=== PATIENT | female | born 1925 | race Caucasian/White ===

== ENCOUNTER 2017-01-01 10:27 | Day surgery (SDC) | payer MEDICARE, BC ==
[~2017-01-01] VITALS: Ht 170.2 cm; Wt 79.8 kg
[~2017-01-01 10:27] MED LIST: (None)125 MG OR; ADLT ASA LOW81 MG PO; ALEVE220 MG OR; ALTACE2.5 MG OR; AMLODIPINE10 MG PO; AMOXICILLIN500 MG PO; ASA LOW DOSE81 MG OR; ATIVAN0.5 MG; ATIVAN0.5 MG PO; ATORVASTATI80 MG/TAB PO; B12 PO; BACLOFEN10 MG PO; BENAZEPRIL HCL20 MG PO; BENAZEPRIL10 M1 PO; BENAZEPRIL10 MG PO; BENAZEPRIL20 M1 PO; BENTYL10 MG PO; CAL-MAG1 TAB; CALCIUM &MAG PO; CALCIUM CITRATE +D PO; CENTRUM PO; CENTRUM SILVER PO; CIPROFLOXACN250 MG PO; COENZYME Q1010 MG OR; COZAAR50 MG PO; DARVOCET-N 100100 MG OR; DICLOXACILL500 MG PO; ENTERIC COATED325 MG PO; FLAGYL500 MG PO; FLEXERIL10 MG PO; FLEXERIL5 MG PO; FLUARIX QUADRIV1 INJ IM; ISORDIL10 MG PO; ISOSORB MONO30 MG PO; KLOR-CON M2020 MEQ PO; LANOXIN0.125 MG OR; LASIX40 MG PO; LEVOTHYROXIN100 MCG OR; LEVOTHYROXIN75 MCG PO; LEVOTHYROXIN88 MC1 PO; LEVOTHYROXIN88 MCG PO; LIPITOR10 MG; LIPITOR20 MG; LIPITOR20 MG PO; LOMOTIL2.5 MG PO; LORTAB 7.5 PO; LORTAB 7.57.5 MG PO; LOTENSIN20 M1 PO; MEDDOSEPAK PO; METOPROL TAR100 MG PO; METOPROL TAR50 MG PO; MEVACOR20 MG PO; MOBIC7.5 MG PO; MOTRIN800 MG PO; MOTRIN800 MG/TAB PO; MULTIVITAMI1 PO; NITRO-DUR0.4 MG/HR TD; NITROGLYCER0.4 MG SL; NITROSTAT0.4 MG SL; NORVASC5 MG PO; OMEGA-3 FISH1000 MG PO; OMEPRAZOLE20 MG PO; PLAVIX75 MG OR; PLAVIX75 MG PO; POT CHLORIDE10 ME1 PO; PREVACID15 M1 PO; PREVACID15 M2 PO; PREVACID15 M3 PO; PROVENTIL0.083 % IN; RANEXA PO; RESTORIL7.5 MG OR; SKELAXIN800 MG PO; TEMAZEPAM15 MG PO; TESSALON PER100 MG PO; TOPROL XL OR; TORADOL OR; TORADOL PO; TRAMADOL HCL50 MG PO; TYLENOL 500MG TAB PO; VENTOLIN HFA IN; VITAMIN B-122000 MCG PO; VITAMIN B-12500 MCG PO; VITAMIN B-COMPLEX PO; VOLTAREN1%GEL TOP; ZANAFLEX2 MG PO; [UNRECOGNIZED DRUG - OTHER] PO; [UNRECOGNIZED DRUG - OTHER] PO; [UNRECOGNIZED DRUG - OTHER] PO; [UNRECOGNIZED DRUG - OTHER] PO
[2017-01-01 13:30] VITALS: BP 125/62
== END 2017-01-01 14:00 | disposition home or self-care (01) ==
LOC: ORM 10:27
PROVIDERS: ATTEND Neurological Surgery
PROC: 3E0T33Z Introduction of Anti-inflammatory into Peripheral Nerves and Plexi, Percutaneous Approach (ICD-10-PCS; principal; 2017-01-01)
PROC: 3E0T3BZ Introduction of Anesthetic Agent into Peripheral Nerves and Plexi, Percutaneous Approach (ICD-10-PCS; 2017-01-01)
DX: M48.9 Spondylopathy, unspecified (principal); M54.2 Cervicalgia